=== PATIENT | female | born 1955 | race Caucasian/White ===

== ENCOUNTER 2021-08-22 09:55 | Emergency (ER) | payer MEDICARE ==
[2021-08-22] MEDS ORDERED: LORazepam 2 MG/ML SDV IM ONE (10:20)
[2021-08-22] MEDS ORDERED: Haloperidol Lactate 5 MG/ML SDV IM ONE (10:20)
[2021-08-22 10:59] LABS: ESTIMATED GFR 71 mL/min (>60)
[2021-08-22] MEDS ORDERED: Gabapentin 100 MG Cap PO ONE (14:02)
[2021-08-22] MEDS ORDERED: atorvaSTATin 20 MG Tab PO ONE (14:02)
[2021-08-22] MEDS ORDERED: busPIRone 5 MG Tab PO ONE (14:02)
[2021-08-22] MEDS ORDERED: Atenolol 25 MG Tab PO ONE (14:02)
[2021-08-22] MEDS ORDERED: DULoxetine 30 MG Cap PO ONE (14:02)
[2021-08-22] MEDS ORDERED: Sulfamethoxazole/Trimethoprim 800-160 MG Tab PO ONE (14:14)
[2021-08-23] MEDS ORDERED: Levothyroxine 88 MCG Tab PO ONE (14:05)
[2021-08-23] MEDS ORDERED: QUEtiapine 100 MG Tab PO ONE (14:06)
== END 2021-08-22 16:25 ==
LOC: FB.ED 09:55
DX: F03.91 Unspecified dementia, unspecified severity, with behavioral disturbance (principal); N39.0 Urinary tract infection, site not specified; E03.9 Hypothyroidism, unspecified; Z79.899 Other long term (current) drug therapy
CPT/HCPCS: 36415; 70450; 80053; 81001; 83735; 85025; 87086; 96372; 99285; A9270; J1630; J2060

== ENCOUNTER 2021-09-06 07:28 | Emergency (ER) | payer MEDICARE ==
[2021-09-06] MEDS ORDERED: OLANZapine 10 MG Vial IM ONE (07:41)
[2021-09-06 08:18] LABS: ESTIMATED GFR 56 mL/min (>60)
[2021-09-06] MEDS ORDERED: QUEtiapine 100 MG Tab PO ONE ×2 (09:05→19:13)
[2021-09-06] MEDS ORDERED: QUEtiapine 100 MG Tab ONE (10:00)
[2021-09-06] MEDS ORDERED: Haloperidol Lactate 5 MG/ML SDV IM ONE (10:27)
[2021-09-06] MEDS ORDERED: LORazepam 2 MG/ML SDV IVPUSH ONE (11:47)
[2021-09-06] MEDS: LORazepam 2 MG/ML SDV IM ONE ×2 (12:00→13:03)
[2021-09-06] MEDS ORDERED: Labetalol 20 MG/4 ML Syringe IVPUSH ONE (12:27)
[2021-09-06] MEDS ORDERED: Atenolol 25 MG Tab PO ONE (12:39)
[2021-09-06] MEDS ORDERED: Sodium Chloride 0.9% 10 ML Syringe FLUSH PRN (12:56)
[2021-09-06] MEDS ORDERED: Sodium Chloride 0.9% 500 ML IV ONE (12:56)
[2021-09-06] MEDS ORDERED: Sodium Chloride 0.9% 1,000 ML IV SCH (14:00)
[2021-09-06 14:38] LABS: ACETAMINOPHEN < 2 ug/mL (<2)
[2021-09-06] MEDS ORDERED: Haloperidol Lactate 5 MG/ML SDV ONE (22:50)
[2021-09-06] MEDS ORDERED: LORazepam 2 MG/ML SDV ONE (22:50)
[2021-09-07] MEDS ORDERED: hydrOXYzine HCl 25 MG Tab ONE (00:04)
[2021-09-07] MEDS ORDERED: OLANZapine 10 MG Vial ONE (01:31)
== END 2021-09-06 20:10 ==
LOC: FB.ED 07:28
DX: F03.91 Unspecified dementia, unspecified severity, with behavioral disturbance (principal); E03.9 Hypothyroidism, unspecified; I10 Essential (primary) hypertension; Z79.899 Other long term (current) drug therapy
CPT/HCPCS: 36415; 70450; 71045; 80053; 80143; 80179; 80307; 81001; 84439; 84443; 84484; 85025; 93005; 96360; 96361; 96372; 99285; A9270; J1630; J2060; J3490; J7030; J7040

== ENCOUNTER 2021-09-06 21:38 | Emergency (ER) | payer MEDICARE ==
[2021-09-06] MEDS ORDERED: Haloperidol Lactate 5 MG/ML SDV IM ONE ×2 (22:14→22:38)
[2021-09-06] MEDS ORDERED: LORazepam 2 MG/ML SDV IM ONE ×2 (22:15→22:39)
[2021-09-06] MEDS ORDERED: Magnesium Hydroxide 400 MG/5 ML Susp 30 ML Cup PO PRN (22:39)
[2021-09-06] MEDS ORDERED: hydrOXYzine HCl 10 MG/5 ML Syrup ML (118 ML Bottle) PO PRN (22:39)
[2021-09-06] MEDS ORDERED: Loperamide 2 MG Cap PO PRN (22:39)
[2021-09-06] MEDS ORDERED: OLANZapine 10 MG Vial IM ONE (23:09)
[2021-09-07] MEDS: hydrOXYzine HCl 25 MG Tab PO PRN ×2 (00:05→09:04)
[2021-09-07] MEDS ORDERED: OLANZapine 10 MG Vial IM ONE (01:39)
[2021-09-07] MEDS: busPIRone 15 MG Tab PO SCH ×3 (07:52→15:10)
[2021-09-07] MEDS ORDERED: QUEtiapine 100 MG Tab PO SCH (08:00)
[2021-09-07] MEDS ORDERED: Gabapentin 100 MG Cap PO SCH (09:00)
[2021-09-07] MEDS ORDERED: Polyethylene Glycol 3350 Powder 17 GM Packet PO SCH (09:00)
[2021-09-07] MEDS ORDERED: Levothyroxine 88 MCG Tab PO SCH (09:00)
[2021-09-07] MEDS ORDERED: Memantine 10 MG Tab PO SCH (09:00)
[2021-09-07] MEDS ORDERED: DULoxetine 30 MG Cap PO SCH (09:00)
[2021-09-07] MEDS ORDERED: Atenolol 25 MG Tab PO SCH (09:00)
[2021-09-07] MEDS ORDERED: atorvaSTATin 20 MG Tab PO SCH (21:00)
== END 2021-09-07 15:30 ==
LOC: FB.ED 21:38 → FB.MS 21:58 → UNDOADMOB 21:58 → FB.ED 09-07 15:30
DX: F03.91 Unspecified dementia, unspecified severity, with behavioral disturbance (principal); I10 Essential (primary) hypertension; E03.9 Hypothyroidism, unspecified; E66.9 Obesity, unspecified; Z68.26 Body mass index [BMI] 26.0-26.9, adult; Z79.899 Other long term (current) drug therapy; Z20.822 Contact with and (suspected) exposure to COVID-19
CPT/HCPCS: 36415; 70450; 71045; 80053; 80143; 80179; 80307; 81001; 84439; 84443; 84484; 85025; 93005; 96360; 96361; 96372; 99285; 99285-25; A9270-GY; J1630; J2060; J3490; J7030; J7040; U0002